=== PATIENT | male | born 1995 | race Caucasian/White ===

== ENCOUNTER 2021-09-03 22:44 | Emergency (ER) | payer SELFPAY ==
[~2021-09-03] VITALS: Ht 175.3 cm; Wt 59.0 kg
[~2021-09-03 22:44] MED LIST: BUSPAR; CODACE30 PO
[2021-09-03 23:51] LABS: BASOPHILS ABSOLUTE AUTO 0.04 K/mm3 (0.00-0.23); BASOPHILS PERCENT AUTO 1 % (0-2); EOSINOPHILS ABSOLUTE AUTO 0.03 K/mm3 (0.00-0.68); EOSINOPHILS PERCENT AUTO 1 % (0-6); Hematocrit 45.5 % (37.0-53.0); Hemoglobin 16.6 g/dL (13.5-17.5); IMMATURE GRAN ABSOLUTE AUTO 0.01 K/mm3 (0.00-0.10); IMMATURE GRAN PERCENT AUTO 0 % (0-1); LYMPHOCYTES ABSOLUTE AUTO 1.91 K/mm3 (0.84-5.20); LYMPHOCYTES PERCENT AUTO 36 % (21-46); MONOCYTES ABSOLUTE AUTO 0.57 K/mm3 (0.16-1.47); MONOCYTES PERCENT AUTO 11 % (4-13); Mean Corpuscular HGB 36.7 pg (26.0-34.0); Mean Corpuscular HGB Conc 36.5 g/dL (31.5-36.5); Mean Corpuscular Volume 101 fL (80-100); Mean Platelet Volume 8.4 fL (9.1-12.4); NEUTROPHILS ABSOLUTE AUTO 2.73 K/mm3 (1.96-9.15); NEUTROPHILS PERCENT AUTO 52 % (41-73); Platelet Count 321 K/mm3 (150-400); RDW Coefficient Variation 13.2 % (11.7-14.2); RDW Standard Deviation 49.3 fL (35.1-46.3); Red Blood Cell Count 4.52 M/mm3 (4.30-5.90); White Blood Cell Count 5.29 K/mm3 (4.00-11.30)
[2021-09-04 00:15] LABS: Alanine Aminotransfer (ALT/SGP 184 U/L (12-78); Albumin, Blood 3.9 g/dL (3.4-5.0); Albumin/Globulin Ratio 1.1 (0.8-1.8); Alk Phos 143 U/L (50-136); Anion Gap 11 mmol/L (6-16); Aspartate Aminotrans (AST/SGOT 75 U/L (12-37); Bilirubin, Total 1.9 mg/dL (0.1-1.0); Blood Urea Nitrogen 14 mg/dL (8-24); Bun/Creatinine Ratio 12.5 (12.0-20.0); CO2, Blood 31 mmol/L (21-32); Calcium, Blood 9.5 mg/dL (8.5-10.1); Chloride, Blood 94 mmol/L (98-108); Creatinine, Blood 1.12 mg/dL (0.60-1.20); Ethanol (Alcohol), Blood, Med 210 mg/dL; Globulin, Blood 3.7 g/dL (2.2-4.0); Glomerular Filtration Rate >60 (60-); Glucose, Blood 118 mg/dL (70-99); Potassium, Blood 3.5 mmol/L (3.5-5.5); Sodium, Blood 136 mmol/L (136-145); Total Protein, Blood 7.6 g/dL (6.4-8.2)
[2021-09-04 01:32] LABS: Source, Urine Voided
[2021-09-04 01:38] LABS: Appearance, Urine Clear (Clear); Bilirubin, Urine Neg (Neg); Blood, Urine Neg (Neg); Color, Urine Yellow (P-Yellow); Glucose Qualitative, Urine Neg (Neg); Ketones, Urine Neg (Neg); Leukocyte Esterase, Urine Neg (Neg); Nitrite, Urine Neg (Neg); Protein, Urine 2+ (Neg); Urobilinogen, Urine 2+ (Normal)
[2021-09-04 01:52] LABS: Bacteria Rare /hpf; Red Blood Cells, Urine 0-2 /hpf (0-2); Squamous Epithelial Cells Rare /hpf (Few); White Blood Cells, Urine 0-2 /hpf (0-5)
[2021-09-04 01:55] LABS: U Amphetamine Screen Not Detected; U Barbituate Screen Not Detected; U Benzodiazapine Screen Not Detected; U Buprenorphine Screen Not Detected; U Cannabinoids Screen Not Detected; U Cocaine Screen Not Detected; U Methadone Screen Not Detected; U Methamphetamine Screen Not Detected; U Opiates Screen Not Detected; U Oxycodone Screen Not Detected; U Phencyclidine Screen Not Detected; U Propoxyphene Screen Not Detected
[2021-09-04 02:12] LABS: Influenza A, PCR NEGATIVE (NEGATIVE); Influenza B, PCR NEGATIVE (NEGATIVE); Resp Syncytial Virus, PCR NEGATIVE (NEGATIVE); SARS-Cov-2 (COVID-19) PCR, MMC NEGATIVE (NEGATIVE)
[2021-09-04] MEDS ORDERED: DICY20 PO (02:20)
[2021-09-04] MEDS ORDERED: Ondansetron Odt8 MG MM (02:20)
[2021-09-04] MEDS ORDERED: Protonix40 MG PO (02:20)
== END 2021-09-04 02:33 | disposition home or self-care (01) ==
LOC: ER 22:44
PROVIDERS: Emergency Medicine
DX: R19.7 Diarrhea, unspecified (principal); R11.10 Vomiting, unspecified; F10.10 Alcohol abuse, uncomplicated; R10.13 Epigastric pain
CPT/HCPCS: 0241U; 36415; 76705; 80053; 81001; 83605; 83690; 85025; 96372; 96374; 99284-25; G0480; J0500; J2405; J7030

== ENCOUNTER 2021-09-28 17:18 | Inpatient (IN) | payer OTHER ==
[~2021-09-28] VITALS: Ht 172.7 cm; Wt 75.2 kg
[~2021-09-28 17:18] MED LIST changes: +DICY20 PO; +Ondansetron Odt8 MG MM; +Protonix40 MG PO
[2021-09-28 17:50] LABS: BASOPHILS ABSOLUTE AUTO 0.03 K/mm3 (0.00-0.23); BASOPHILS PERCENT AUTO 0 % (0-2); EOSINOPHILS PERCENT AUTO 0 % (0-6); Hematocrit 48.5 % (37.0-53.0); Hemoglobin 17.2 g/dL (13.5-17.5); IMMATURE GRAN ABSOLUTE AUTO 0.11 K/mm3 (0.00-0.10); IMMATURE GRAN PERCENT AUTO 1 % (0-1); LYMPHOCYTES ABSOLUTE AUTO 0.87 K/mm3 (0.84-5.20); LYMPHOCYTES PERCENT AUTO 7 % (21-46); MONOCYTES ABSOLUTE AUTO 0.48 K/mm3 (0.16-1.47); MONOCYTES PERCENT AUTO 4 % (4-13); Mean Corpuscular HGB 33.8 pg (26.0-34.0); Mean Corpuscular HGB Conc 35.5 g/dL (31.5-36.5); Mean Corpuscular Volume 95 fL (80-100); NEUTROPHILS ABSOLUTE AUTO 11.08 K/mm3 (1.96-9.15); NEUTROPHILS PERCENT AUTO 88 % (41-73); NRBC ABSOLUTE 0.02 K/mm3 (0.00-0.02); NRBC Auto 0.2 /100 WBC (0.0-0.2); Platelet Count 68 K/mm3 (150-400); RDW Standard Deviation 63.1 fL (35.1-46.3); Red Blood Cell Count 5.09 M/mm3 (4.30-5.90); White Blood Cell Count 12.57 K/mm3 (4.00-11.30)
[2021-09-28 18:25] LABS: Albumin, Blood 2.2 g/dL (3.4-5.0); Albumin/Globulin Ratio 0.8 (0.8-1.8); Bilirubin, Total 11.2 mg/dL (0.1-1.0); Bun/Creatinine Ratio 7.4 (12.0-20.0); Calcium, Blood 6.9 mg/dL (8.5-10.1); Creatinine, Blood 1.88 mg/dL (0.60-1.20); Globulin, Blood 2.9 g/dL (2.2-4.0); Potassium, Blood 4.2 mmol/L (3.5-5.5); Total Protein, Blood 5.1 g/dL (6.4-8.2)
[2021-09-28 19:19] LABS: Source, Urine Clean Catch
[2021-09-28 19:24] LABS: Blood, Urine 4+ (Neg); Glucose Qualitative, Urine 1+ (Neg); Ketones, Urine 1+ (Neg); Leukocyte Esterase, Urine 1+ (Neg); Nitrite, Urine Pos (Neg); Protein, Urine 2+ (Neg); Specific Gravity, Urine 1.025 (1.003-1.022); Urobilinogen, Urine 2+ (Normal)
[2021-09-28 19:33] LABS: Appearance, Urine Hazy (Clear); Color, Urine Amber (P-Yellow)
[2021-09-28 19:34] LABS: Bilirubin, Urine 3+ (Neg)
[2021-09-28 19:35] LABS: Amorphous Light (0-Heavy); Bacteria Many /hpf; Granular Casts 0-2 /lpf (0); Squamous Epithelial Cells Few /hpf (Few)
--- NOTE | 2021-09-28 23:20 | NUR ---
ARRIVAL TO ICU PT ARRIVED TO ICU 16 AT 2220 VIA ED BED AND WAS ABLE TO TRANSFER HIMSELF OVER TO ICU BED WITH MINIMAL ASSISTANCE. PT IS ALERT/ORIENTED X4 AND IS ABLE TO MAKE HIS NEEDS KNOWN. AFEBRILE. SPO2 97% ON RA; TACHYPNIC; PT STATES HE BREATHS SHALLOW DUE TO THE PRESSURE FROM HIS ABD. HR 120-130'S. BP STABLE. ABD IS MODERATLY DISTENDED, FIRM, AND TENDER TO PALPATE; PAIN IN ABD 9/10, TRAMADOL AVIALBALE AND GIVEN; HYPOACTIVE BT; NAUSEA AND DRY HEAVING JUST AFTER ARRIVAL TO ICU; PRN ZOFRAN AVAILABLE AND GIVEN; PT TOLERATING SINGLE ICE CHIPS AT A TIME WELL. BANANA BAG INFUSING AT 200ML/HR. CIWA SCORE 10. SEE ADMISSION ASSESSMENT FOR FULL ASSESSMENT.
[2021-09-29 04:05] LABS: BASOPHILS ABSOLUTE AUTO 0.03 K/mm3 (0.00-0.23); BASOPHILS PERCENT AUTO 0 % (0-2); Hematocrit 44.6 % (37.0-53.0); Hemoglobin 16.7 g/dL (13.5-17.5); LYMPHOCYTES ABSOLUTE AUTO 0.77 K/mm3 (0.84-5.20); LYMPHOCYTES PERCENT AUTO 9 % (21-46); MONOCYTES ABSOLUTE AUTO 0.45 K/mm3 (0.16-1.47); MONOCYTES PERCENT AUTO 5 % (4-13); Mean Corpuscular HGB 34.3 pg (26.0-34.0); Mean Corpuscular HGB Conc 37.4 g/dL (31.5-36.5); Mean Corpuscular Volume 92 fL (80-100); NRBC ABSOLUTE 0.02 K/mm3 (0.00-0.02); NRBC Auto 0.2 /100 WBC (0.0-0.2); Platelet Count 51 K/mm3 (150-400); RDW Coefficient Variation 17.4 % (11.7-14.2); RDW Standard Deviation 58.4 fL (35.1-46.3); Red Blood Cell Count 4.87 M/mm3 (4.30-5.90); White Blood Cell Count 8.78 K/mm3 (4.00-11.30)
[2021-09-29 04:10] LABS: EOSINOPHILS PERCENT AUTO 0 % (0-6); IMMATURE GRAN ABSOLUTE AUTO 0.06 K/mm3 (0.00-0.10); IMMATURE GRAN PERCENT AUTO 1 % (0-1); NEUTROPHILS ABSOLUTE AUTO 7.47 K/mm3 (1.96-9.15); NEUTROPHILS PERCENT AUTO 85 % (41-73)
[2021-09-29 04:43] LABS: Albumin, Blood 1.6 g/dL (3.4-5.0); Albumin/Globulin Ratio 0.8 (0.8-1.8); Bilirubin, Total 9.9 mg/dL (0.1-1.0); Bun/Creatinine Ratio 6.9 (12.0-20.0); Calcium, Blood 5.5 mg/dL (8.5-10.1); Creatinine, Blood 2.16 mg/dL (0.60-1.20); Globulin, Blood 2.1 g/dL (2.2-4.0); Potassium, Blood 3.6 mmol/L (3.5-5.5); Total Protein, Blood 3.7 g/dL (6.4-8.2)
--- NOTE | 2021-09-29 04:54 | NUR ---
UPDATE CALLED DR SMITH REGARDING CRITICAL LAB OF 5.5 CALCIUM. NEW ORDERS PROVIDED FOR CALCIUM GLUCONATE 1AMP IV X1.
--- NOTE | 2021-09-29 06:25 | NUR ---
END OF SHIFT SUMMARY NO ACUTE EVENTS OVERNIGHT. PT CONT TO BE ALERT/ORIENTED X4 AND ABLE TO MAKE HIS NEEDS KNOWN. CIWA SCORES 10-13; ATIVAN GIVEN X2 FOR ANXIETY. SPO2 >96% ON RA; TACHYPNIA NOTED. HR 120-130'S; WILL INCREASE TO 140'S DURING EXERTION. BP STABLE. ABD CONT TO BE FIRM, TENDER, AND MODERATLY DISTENDED; NO BM THIS SHIFT; ZOFRAN GIVEN ONCE AND HELPFUL; PT CONT TO TOLERATE ICE CHIPS WELL; TORADOL GIVEN X2 FOR ABD PAIN SCORE OF 7-9. PT USING URINAL INDEPENDENTLY; 120ML MIRYAM URINE OUT. NS INFUSING AT 150ML/HR. CALCIUM GLUCONATE JUST FINSISHED INFUSING. WILL REPORT TO AM RN WHEN AVAILABLE.
--- NOTE | 2021-09-29 07:45 | NUR ---
PATIENT FELL THIS AM AROUND 0730. NURSE IN ROOM 10 MINUTES EARLIER. NURSE AT NURSE STATION AND NOTICED ECG LEADS WERE NOT READING WELL. NURSE WENT INTO ROOM AND SAW PATIENT TRYING TO GET UP OFF THE FLOOR FROM BEING ON HIS STOMACH. NURSE ASKED PATIENT WHAT HAPPENED AND PATIENT STATED HE FELL WHEN HE WAS TRYING TO USE THE URINAL. 3 SIDE RAILS UP AND PATIENT WENT AROUND SIDE RAILS TO GET OUT OF BED. PATIENT INFORMED WHEN NURSE IN 10 MINUTES EARLIER TO CALL NURSE IF HE NEEDED ANYTHING AND THAT HE IS NOT TO GET OUT OF BED WITHOUT NURSE ASSISTANCE. PATIENT ALERT AND ORIENTED X 4 AT THIS TIME. ASKED PATIENT IF HE HAD HURT ANYTHING OR WAS IN PAIN ANYWERE AND PATIENT STATED "NO". PATIENT SPONTANEOUSLY GOT UP TO CHAIR AND THEN TO BED WHILE NURSE TRYING TO ASK QUESTIONS. NURSE QUICKLY TRIED TO HELP PATIENT SO HE DID NOT FALL AGAIN. CHARGE NURSE CALLED TO ROOM. NURSE LABELING STRATEGIST INFORMED. HEMATOMA NOTED TO TOP MIDDLE OF FOREHEAD AND ELBOWS REDDENED. PATIENT ADMITTED THAT HE LANDED ON HIS ELBOWS AND "HIT HIS HEAD ON THE CEMENT". DR. JARRETT CALLED AND INFORMED OF EVENT. CT HEAD TO BE PERFORMED. CAMERA TURNED ON IN ROOM. BED ALARM ON. CALL LIGHT IN REACH. BED LOW. WILL CONTINUE TO MONITOR.
--- NOTE | 2021-09-29 08:00 | NUR ---
INITIAL ASSESSMENT PATIENT ALERT AND ORIENTED X 4 THIS AM. PATIENT IS SLIGHTLY ANXIOUS. CIWA SCORE OF 3 THIS AM. PATIENT CRAWLED OUT OF BED PAST SIDE RAIL TO TRY AND USE URINAL ON OWN AND FALL ON FACE THIS AM. SCLERA REDDENED AND JAUNDICED. PATIENT AFEBRILE. PATIENT HAS NO COMPLAINTS OF PAIN, EVEN AFTER FALLING. PATIENT SATTING 90% AND GREATER ON RA. LUNGS CLEAR. PATIENT DOES BECOME SLIGHTLY SOB WITH EXERTION. PATIENT IN SR, HR IN THE 120S. SBP IN THE 1-TEENS. PULSES IN BILAT FEET FAINT. ASCITES TO STOMACH. ABDOMEN MODERATELY DISTENDED, FIRM, TENDER, WITH HYPOACTIVE BOWEL SOUNDS NOTED. PATIENT NPO AT THIS TIME. DATE OF LAST BM ON 09/24. NO VOID YET THIS SHIFT. HEMATOMA TO TOP MIDDLE FOREHEAD. ABRASION TO MIDDLE OF EYEBROWS. ELBOWS REDDENED. SCATTERED BRUISES NOTED. SKIN PALE AND SLIGHTLY JAUNDICED. SKIN IS DRY AND PEELING/ SCALING ON FACE AND FEET. BED LOW, CALL LIGHT IN REACH, BED ALARM ON. WILL CONTINUE TO MONITOR PATIENT FREQUENTLY THROUGHOUT SHIFT.
--- NOTE | 2021-09-29 11:30 | NUR ---
PATIENT CONFUSED AND ONLY ORIENTED TO SELF. WHEN PATIENT ASKED WHERE HE WAS HE STATED "HAUNTED PRIUS". PATIENT AGITATED AND PULLING AT IMPORTANT LINES AND CORDS. PATIENT CONTINUES TO TRY AND CRAWL OUT OF BED. CIWA SCORE OF 17. SPEECH GARBLED. PRECEDEX AT 0.2 MCG/ KG/ HOUR. PATIENT NOT FOLLOWING COMMANDS BUT IS LOCALIZING MOVEMENTS. HR 1-TEENS TO 120S. SBP IN THE LOW 100S. PATIENT OLIGURIC. URINE DARK TEA IN COLOR. MADRIGAL IN PLACE. BED LOW, CALL LIGHT IN REACH, BED ALARM ON.
--- NOTE | 2021-09-29 12:00 | NUR ---
DR. JARRETT INFORMED THAT PATIENT HAS BEEN ESCALATING AND CONTINUES TO TRY AND GET OUT OF BED. INFORMED THAT PATIENT HAS NOT VOIDED THIS AM AND BLADDER SCAN SHOWS OVER 700 MLS OF FLUID. ORDERS RECEIVED.
[2021-09-29 12:02] LABS: Source, Urine Foley catheter
[2021-09-29 12:06] LABS: Blood, Urine 4+ (Neg); Glucose Qualitative, Urine Neg (Neg); Ketones, Urine 1+ (Neg); Leukocyte Esterase, Urine 1+ (Neg); Nitrite, Urine Pos (Neg); Protein, Urine 2+ (Neg); Specific Gravity, Urine 1.015 (1.003-1.022); Urobilinogen, Urine 2+ (Normal)
[2021-09-29 12:16] LABS: Appearance, Urine Hazy (Clear); Bilirubin, Urine 3+ (Neg); Color, Urine Amber (P-Yellow)
[2021-09-29 12:17] LABS: Amorphous Light (0-Heavy); Bacteria Mod /hpf; Squamous Epithelial Cells Few /hpf (Few)
--- NOTE | 2021-09-29 15:04 | NUR ---
SHIFT SUMMARY PATIENT HAS REMAINED ALERT AND ORIENTED X 4, AFEBRILE. PATIENT HAS HAD NO COMPLAINTS OF PAIN OR DISCOMFORT. PATIENT HAS AMBULATED WELL SBA TO TOILET. PATIENT HAS REMAINED DENYING S.I.. RESP REMAINS WNL. PATIENT HAS REMAINED SR, HR 60S TO 70S. SBP LOW 100S TO 130S. PATIENT NAUSEOUS THIS AM. PATIENT RECEIVED PRN REGLAN AND NAUSEA HAS BEEN BETTER SINCE. PATIENT REPORTS REGLAN WORKED BETTER FOR HER THAN THE ZOFRAN. NO BM THIS SHIFT. PATIENT INCREASED FROM NPO TO REGULAR DIET AND HAS BEEN TOLERATING WELL THUS FAR. WNL. PATIENT AT END OF MENSES. NO CHANGES TO SKIN NOTED. PATIENT HAS REPOSITIONED SELF IN BED THROUGHOUT SHIFT. NAC INFUSING AT 65 MLS/ HOUR. LABS TO BE DRAWN AT 0005 TO SEE IF DRIP WILL NEED TO BE CONTINUED OR NOT. LACTIC AND ACETAMINOPHEN LABS IMPROVED THIS SHIFT. PATIENT RECEIVED COMPLETE BED BATH THIS SHIFT. PATIENT TO BE TRANSFERRED TO PEDIATRIC UNIT, ROOM 224 SHORTLY.
--- NOTE | 2021-09-29 16:00 | NUR ---
PATIENT AFEBRILE. PATIENT GOES FROM PERIODS OF SLEEPING TO PERIODS OF BEING VERY AGITATED, PULLING AT EQUIPMENT AND TRYING TO GET OUT OF BED. CIWA SCORE OF 13. PRECEDEX AT 0.4 MCG/ KG/ HOUR. HR IN THE 1-TEENS. SBP IN THE 80S. WILL CONTINUE TO MONITOR.
--- NOTE | 2021-09-29 16:45 | NUR ---
DR. JARRETT CALLED AND INFORMED THAT PATIENT SBP 70S TO 80S AND HR 1-TEENS TO 130S. INFORMED THAT PATIENT HAS ONLY HAD ABOUT 80 MLS OF URINE OUTPUT FROM MADRIGAL THIS SHIFT. ORDERS RECEIVED.
--- NOTE | 2021-09-29 18:18 | NUR ---
CALLED DR. JARRETT AND INFORMED THAT PATIENT'S SBP 60S TO 70S, HR IN 1-TEENS AND THAT PATIENT HAS HAD NO MORE URINE OUTPUT SINCE NURSE LAST INFORMED OF LOW OUTPUT. INFORMED THAT MADRIGAL PATENT AFTER CHECKING WITH FLUSH. ORDER FOR 500 CC NS BOLUS RECEIVED.
--- NOTE | 2021-09-29 19:00 | NUR ---
SHIFT SUMMARY PATIENT ALERT AND ORIENTED X 4 AT BEGINNING OF SHIFT, HOWEVER SHORT TIME LATER PATIENT BECAME CONFUSED, GARBLED SPEECH, CIWA UP TO 17. PATIENT FELL THIS AM WHILE ALERT AND ORIENTED. HEAD CT PERFORMED AND IS NEGATIVE. PATIENT HAS EITHER REMAINED SLEEPING, OR AWAKE AND PULLING AT RESTRAINT, EQUIPMENT AND TRYING TO GET OUT OF BED. PATIENT HAS REMAINED ON RA. PATIENT SLIGHTLY SOB WITH EXERTION. PATIENT HAS REMAINED ST, HR UP TO 130S. SBP HAS RANGED FROM 70S TO 140S. ABDOMEN REMAINS DISTENDED. PATIENT HAD TWO XSMALL BROWN, MUCOUSY BMS THIS SHIFT. ATTENDS IN PLACE. MADRIGAL PLACED THIS SHIFT BLADDER SCANNER SHOWED OVER 700 MLS OF FLUID. MADRIGAL HAS ONLY DRAINED 92 MLS OF DARK TEA COLORED URINE THIS SHIFT. DR. JARRETT AWARE OF OLIGURIA AND PATIETN IS ON 2ND 500 CC BOLUS OF NS. MAINTENANCE FLUID ALSO INCREASED FROM 150 TO 200 MLS/ HOUR. PATIENT OBTAINED HEMATOMA TO TOP MIDDLE FOREHEAD, REDDENED ELBOWS AND ABRASION TO MIDDLE OF EYEBROWS FROM FALL THIS AM. PRECEDEX CURRENTLY INFUSING AT 0.3 MCG/ KG/ HOUR. TEST TECHNICIAN CONSULT PLACED THIS SHIFT. MESSAGE LEFT WITH SURGICAL ASST TO CALL SISTER. Mitchell SAMANO SUBMITTED THIS SHIFT. PATIENT RECEIVED COMPLETE BED BATH THIS SHIFT. REPORT HAS BEEN GIVEN TO ASSUMING MARKET SUPERINTENDENT NURSE.
--- NOTE | 2021-09-29 20:00 | NUR ---
ASSUMED CARE AT 1900 PT LAYING IN BED SLEEPING AT SHIFT CHANGE. PT IS REACTIVE TO VERBAL STIMULI AND WILL OCCATIONLLY ANSWER ORIENTATION QUESTIONS STATING HIS AND LOCATION THE HOSPITAL; DID NOT KNOW DATE/TIME AND UNABLE TO GET A CLEAR ANSWER ABOUT SITUATION; CIWA SCORE 15, ATIVAN GIVEN X2; PT WILL TRY TO MAKE NEEDS KNOWN BUT SPEECH IS GARBLED; PRECEDEX INFUSING AT 0.1MCG/KG/HR; SEE FLOW SHEET FOR TITATION. AFEBRILE. SPO2 >95% ON RA; TACHYPNIC WITH SHALLOW BREATHS. HR 90-110. SBP 70-90'S; MAP 55-70; DR PIÑA NOTIFIED OF BP FOR 1L BOLUS OVER 2HRS. ABD FIRM, TENDER, MODERATLY DISTENDED. MADRIGAL IN PLACE WITH NO URINE OUTPUT YET. BILATERAL ELBOWS CONT TO BE RED, ABRASION BETWEEN EYES OPEN TO AIR AND DRY, HEMATOMA ON FOREHEAD NOTED WITH NO CHANGE. PT REPOSITIONS SELF IN BED FREQUENTLY AND OCCATIONALLY PULLS AT LINES. SEE SHIFT ASSESSMENT FOR FULL ASSESSMENT.
[2021-09-29 21:07] LABS: U Amphetamine Screen Not Detected; U Barbituate Screen Not Detected; U Benzodiazapine Screen DETECTED; U Buprenorphine Screen Not Detected; U Cannabinoids Screen Not Detected; U Cocaine Screen Not Detected; U Methadone Screen Not Detected; U Methamphetamine Screen Not Detected; U Opiates Screen Not Detected; U Oxycodone Screen Not Detected; U Phencyclidine Screen Not Detected; U Propoxyphene Screen Not Detected
[2021-09-30 03:30] LABS: Hematocrit 29.2 % (37.0-53.0); Hemoglobin 10.2 g/dL (13.5-17.5); Mean Corpuscular HGB 34.6 pg (26.0-34.0); Mean Corpuscular HGB Conc 34.9 g/dL (31.5-36.5); NRBC ABSOLUTE 0.06 K/mm3 (0.00-0.02); NRBC Auto 0.8 /100 WBC (0.0-0.2); RDW Coefficient Variation 18.3 % (11.7-14.2); RDW Standard Deviation 66.1 fL (35.1-46.3); Red Blood Cell Count 2.95 M/mm3 (4.30-5.90); White Blood Cell Count 7.82 K/mm3 (4.00-11.30)
[2021-09-30 03:35] LABS: Mean Corpuscular Volume 99 fL (80-100)
[2021-09-30 03:36] LABS: Platelet Count 34 K/mm3 (150-400)
[2021-09-30 03:47] LABS: Alanine Aminotransfer (ALT/SGP 197 U/L (12-78); Albumin, Blood 1.5 g/dL (3.4-5.0); Alk Phos 322 U/L (50-136); Anion Gap 17 mmol/L (6-16); Aspartate Aminotrans (AST/SGOT 874 U/L (12-37); Bilirubin, Total 10.3 mg/dL (0.1-1.0); Blood Urea Nitrogen 24 mg/dL (8-24); Bun/Creatinine Ratio 5.7 (12.0-20.0); CO2, Blood 18 mmol/L (21-32); Chloride, Blood 95 mmol/L (98-108); Creatinine, Blood 4.22 mg/dL (0.60-1.20); Globulin, Blood 1.5 g/dL (2.2-4.0); Glomerular Filtration Rate 17 (60-); Glucose, Blood 69 mg/dL (70-99); Magnesium, Blood 1.9 mg/dL (1.6-2.4); Potassium, Blood 4.6 mmol/L (3.5-5.5); Sodium, Blood 130 mmol/L (136-145)
[2021-09-30 04:01] LABS: Calcium, Blood <5.0 mg/dL (8.5-10.1)
--- NOTE | 2021-09-30 07:45 | NUR ---
PATIENT'S SISTER CALLED AND UPDATED ON PATIENT CONDITION.
--- NOTE | 2021-09-30 07:46 | NUR ---
[address] PIÑA NOTIFIED OF BP NOT IMPROVING SINCE PREVIOUS CONVERSATION, ALSO INFORMED OF NOT HAVING ANY URINE OUTPUT YET IN SHIFT EVEN AFTER FLUSHING CATHETER. NEW ORDERS 1L BOLUS OF NS FOLLOWED BY 200ML/HR OF LR, TO START LEVOPHED, AND GIVE ALBUMIN 25G BID FOR 4 DOSES AND TO START NOW. TWO MORE PERIFERAL IV'S STARTED.
--- NOTE | 2021-09-30 07:51 | NUR ---
[address] SMITH ABOUT CONT BP ISSUES. MAPS 50-66 WITH LEVOPHED INFUSING AT 10MCG/MIN. DR SMITH PROVIDED ORDERS FOR AN ADDITIONAL 1L BOLUS OF NS. CENTRAL LINE PLACED AND CONFIRMED WITH CHEST X-RAY. 4MG ATIVAN GIVEN DURING CENTRAL LINE PLACING DUE TO INCREASED ANXIOUSNESS AND RESTLESSNESS FROM PT. NEW ORDERS GIVEN FOR ADDITIONAL MORNING LABS AND TO START VASOPRESSIN IF NEEDED. PT IS NOT RESTLESS ANYMORE.
--- NOTE | 2021-09-30 07:55 | NUR ---
[address] SMITH NOTIFIED OF CRITICAL LAB PLT 34 AND CALCIUM <5, ALSO INFORMED OF BMP 536, GLUCOSE 69, AND CREATININE 4.22. NEW ORDERS PROVIDED FOR 1AMP CALCIUM GLUCONATE IV NOW, 1AMP D50 NOW, AND TO TURN OFF ALL FLUIDS.
--- NOTE | 2021-09-30 08:00 | NUR ---
0500 UPDATE PT CONT TO HAVE BP ISSUES. LEVOPHED MAXED AT 30MCG/MIN, VASOPRESSIN 0.04UNITS/HR. ALSO PT CONT TO BE LESS RESPONSIVE AND DOES NOT HAVE A COUGH OR GAG, RR INCREASED TO 50'S AND ABD IS MORE RIDGED. DR SOTO CALLED AND CAME TO BEDSIDE TO ASSESS. 0.2MG ROMAZICON ORDERED AND GIVEN, PT BEGAN TO WAKE MORE AND BP IMPROVED WITH MAPS 65-75. NEW ORDERS ALSO FOR BICARB PUSHES FOLLOWED BY A BICARB GTT.
--- NOTE | 2021-09-30 08:00 | NUR ---
SHIFT ASSESSMENT PATIENT INTUBATED AND UNRESPONSIVE THIS AM. PATIENT OCCASIONALLY AND SPONTANEOUSLY WIGGLES FINGERS SLIGHTLY BUT PERFORMED NO OTHER BODY MOVEMENTS. PATIENT AFEBRILE. PATIENT ON VENT SETTINGS OF AC 16, TV 500, PEEP 5 AND 60% FIO2. LUNGS CLEAR. PATIENT IN SR, HR IN THE 60S. SBP 80S TO 1-TEENS. FEET DUSKY, MOTTLED, COLD AND HAVE DOPPLER PULSES. ABDOMEN MODERATELY DISTENDED AND FIRM. HYPOACTIVE BOWEL SOUNDS NOTED. LAST DOCUMENTED BM YESTERDAY. MADRIGAL DRAINING MINIMAL AMOUNTS OF DARK TEA, CLOUDY URINE. BRUISED HEMATOMA NOTED TO TOP MIDDLE FOREHEAD. REDDENED ELBOWS NOTED. ABRASION TO MIDDLE OF EYEBROWS. SCATTERED BRUISES NOTED. SKIN PALE, JAUNDICED, DRY AND SCALING/ PEELING. SODIUM BICARB INFUSING AT 75 MLS/ HOUR, LEVOPHED AT 30 MCG/ MINUTE, VASOPRESSIN AT 0.04 UNITS/ MINUTE, EPINEPRHINE 8 MCG/ MINUTE. NO SIGNS OF PAIN NOTED AT THIS TIME. BED LOW. WILL CONTINUE TO MONITOR PATIENT FREQUENTLY THROUGHOUT SHIFT.
--- NOTE | 2021-09-30 08:05 | NUR ---
0600 UPDATE/ END OF SHIFT SUMMARY DR SMITH RETURNED TO ASSESS PT AND PT HR STARTING TO BECOME IRREGULAR, RR RETURNED TO 50'S AND RETURNED TO BEING LESS RESPONSIVE. RT CALLED AND DR SMITH INTUBATED. 15MG ETOMIDATE GIVEN AT 0549, 80MG ROCURONIUM GIVEN AT 0549. 0551 8.0 ETT PLACED AND 25CM AT TEETH. VENT SETTINGS AC/VC 16/450/5/100%. NEW ORDERS FOR ADDITIONAL 500ML BOLUS AND A CT OF THE ABD/PELVIS W/O CONTRAST. PT BP STARTED TO DECLINE AGAIN, EPI STRATED AT 4MCG/MIN; LEVOPHED CONT AT 30MCG/MIN; VASPORESSIN INFUSING AT 0.04UNITS/HR. BICARB INFUSING AT 75ML/HR. PT HAS NOT BEEN REACTIVE SINCE INTUBATION, PRECEDEX INFUSING AT 0.7MCG/KG/HR, NO OTHER SEDATION. ABD IS MORE FIRM AND RIDGED THAN PREVIOUSLY. MADRIGAL ONLY HAD 23ML OF DARK MIRYAM CLOUDY OUTPUT. FEET MOTTLED. CENTRAL LINE DRESSING CHANGED ONCE AFTER ORIGINAL ONE BEING PLACED, YARITZA BANDAGE PLACED, SITE CONT TO PRATEEK. DR SMITH PROVIDED MORE ORDER 0645 TO INCREASE ALBUMIN, AND CHANGE BICARB RATE. REPORT GIVEN TO SMOOTH VALDEZ.
--- NOTE | 2021-09-30 08:15 | NUR ---
DR. QUINTANILLA INFORMED THAT PATIENT'S INTRA-ABDOMINAL PRESSURE IS 30. NUMBER DOUBLE CHECKED WITH WEAVER DOBBY LOOM.
--- NOTE | 2021-09-30 11:22 | NUR ---
PATIENT LEFT FOR OR.
[2021-09-30 11:35] LABS: Prothrombin Time Results 72.1 Sec (9.7-11.5)
[2021-09-30 11:39] LABS: International Normalized Ratio 7.86
--- NOTE | 2021-09-30 12:19 | NUR ---
PATIENT BACK FROM OR. LEVOPHED AT 24 MCG/ HOUR AND 90 MLS/ HOUR WHEN LEFT UNIT. WHEN PATIENT CAME BACK LEVOPHED AT 24 MLS/ HOUR.
--- NOTE | 2021-09-30 12:33 | NUR ---
09/30/21 1233 Elodia Hebert PATIENT ARRIVED TO OR WITH MADRIGAL CATHETER INPLACE DRAINING DARK URINE. PATIENT ALSO HAD A CENTRAL LINE IN PLACE IN RIGHT NECK. NO PREOP ANTIBIOTICS ORDERED PER PATIENT IS ON SCHEDULED ANTIBIOTICS.
[2021-09-30 13:02] LABS: Hematocrit 20.7 % (37.0-53.0); Hemoglobin 6.7 g/dL (13.5-17.5); Mean Corpuscular HGB 34.5 pg (26.0-34.0); Mean Corpuscular HGB Conc 32.4 g/dL (31.5-36.5); NRBC ABSOLUTE 0.15 K/mm3 (0.00-0.02); NRBC Auto 1.7 /100 WBC (0.0-0.2); Platelet Count 82 K/mm3 (150-400); RDW Coefficient Variation 18.5 % (11.7-14.2); RDW Standard Deviation 71.6 fL (35.1-46.3); Red Blood Cell Count 1.94 M/mm3 (4.30-5.90); White Blood Cell Count 9.08 K/mm3 (4.00-11.30)
[2021-09-30 13:15] LABS: International Normalized Ratio 2.25
[2021-09-30 13:21] LABS: Mean Corpuscular Volume 107 fL (80-100)
[2021-09-30 13:41] LABS: PCO2 Arterial 40.9 mmHg (35-45); PO2 Arterial 73.1 mmHg (80-100)
[2021-09-30 13:42] LABS: pH Blood Arterial 7.15 (7.35-7.45)
[2021-09-30 13:53] LABS: BAND PERCENT MAN 5 % (0-8); BASOPHILS PERCENT MAN 0 % (0-2); EOSINOPHILS ABSOLUTE MAN 0.09 K/mm3 (0.00-0.68); EOSINOPHILS PERCENT MAN 1 % (0-6)
[2021-09-30 13:55] LABS: LYMPHOCYTES ABSOLUTE MAN 1.99 K/mm3 (0.84-5.20); LYMPHOCYTES PERCENT MAN 22 % (21-46); MONOCYTES ABSOLUTE MAN 0.63 K/mm3 (0.16-1.47); MONOCYTES PERCENT MAN 7 % (4-13); NEUTROPHILS ABSOLUTE MAN 6.35 K/mm3 (1.96-9.15); SEG NEUTROPHILS PERCENT MAN 65 % (41-73); TOTAL CELLS COUNTED 100
[2021-09-30 14:20] LABS: Alanine Aminotransfer (ALT/SGP 314 U/L (12-78); Albumin, Blood 2.3 g/dL (3.4-5.0); Albumin/Globulin Ratio 1.4 (0.8-1.8); Alk Phos 277 U/L (50-136); Anion Gap 24 mmol/L (6-16); Aspartate Aminotrans (AST/SGOT 2091 U/L (12-37); Bilirubin, Total 9.8 mg/dL (0.1-1.0); Blood Urea Nitrogen 26 mg/dL (8-24); Bun/Creatinine Ratio 5.9 (12.0-20.0); CO2, Blood 15 mmol/L (21-32); Chloride, Blood 91 mmol/L (98-108); Creatinine, Blood 4.37 mg/dL (0.60-1.20); Globulin, Blood 1.7 g/dL (2.2-4.0); Glomerular Filtration Rate 16 (60-); Glucose, Blood 98 mg/dL (70-99); Potassium, Blood 4.5 mmol/L (3.5-5.5); Sodium, Blood 130 mmol/L (136-145)
[2021-09-30 14:21] LABS: Calcium, Blood <5.0 mg/dL (8.5-10.1)
[2021-09-30 15:05] LABS: Prothrombin Time Results 22.4 Sec (9.7-11.5)
--- NOTE | 2021-09-30 15:27 | NUR ---
Upon being contacted by RN Cane Flume Watcher Gerardo, I visit pt. Pt is minimally responsive. Pt's sister Mishel and friend Jose are bedside. I conduct a life review, discuss pt's core values, explore his personality and traits and reflect with family their most cherished memories with the pt. Pt has no hoahaoism preference but Mishel affirms that a prayer for the pt would be appropriate today. We also discuss his suicidal ideation and the events and traumas that may have sent a normally optimistic person down the road to self destruction. Mishle discusses pt's new DNR status and how that status lines up with his stubborn path to not feel pain and to quit on living. I provide therapeutic listening, emotional support, gentle vocational rehabilitation counselor and prayer. Family respond well and show signs of being comforted.
--- NOTE | 2021-09-30 16:10 | NUR ---
DR. BRAR CALLED AND INFORMED THAT BLOOD IS BUILDING UP UNDER DRESSING ON STOMACH AND THAT WOUND VAC KEEPS ALARMING THAT THERE IS A BLOCK. NURSE TRIED SWITCHING OUT CANISTER EARLIER BUT HAS NOT CORRECTED ALARM.
--- NOTE | 2021-09-30 16:32 | NUR ---
PATIENT HAS STARTED BLEEDING FROM EYES. DR. QUINTANILLA UPDATED AND TO ROOM TO SPEAK WITH PATIENT'S SISTER. PATIENT'S SISTER HAS DECIDED TO GO COMFORT CARE.
--- NOTE | 2021-09-30 17:00 | NUR ---
SHIFT SUMMARY PATIENT VERY UNSTABLE THROUGHOUT SHIFT. PATIENT BLOOD PRESSURE CONTINUED TO BE LOW. PATIENT WAS PLACED ON LEVOPHED AT 30 MCG/ MINUTE, VASOPRESSIN AT 0.04 UNITS/ MINUTE, EPINEPHRINE AT 20 MCG/ MINUTE, AND KARINA-SYNEPRHINE AT 100 MCG/ MINUTE. BLOOD PRESSURE CONTINUED TO BE AN ISSUE. ABDOMINAL PRESSURE HIGH AT [address] BRAR WAS CONSULTED AND TOOK PATIENT TO OR TO OPEN UP STOMACH AND RELIEVE PRESSURE. PATIENT CAME BACK WITH WOUND VAC. AFTER PATIENT CAME BACK FROM OR HIS BLEEDING INCREASED. PATIENT GIVEN 1 UNIT PLATELETS AND 2 UNITS FFP IN OR. PATIENT GIVEN 1 UNIT RBCS AND 2 UNITS PLASMA WHEN CAME BACK TO ICU. PATIENT UP AND DOWN ON VENT FIO2 FROM 35 TO 100%. HR RANGED FROM 80S TO 1-TEENS. SBP RANGED FROM 40S TO 160S. BP COULD BE LABILE. ABDOMEN CONTINUED TO SWELL AND BECOME MORE DISTENDED AFTER CAME BACK FROM OR ON WOUND VAC. NO BM THIS SHIFT. PATIENT CONTINUED TO HAVE VERY MINIMAL URINE OUTPUT; URINE REMAINED DARK TEA AND CLOUDY IN COLOR. PATIENT RECEIVED AMP OF SODIUM BICARB, ALBUMIN X 2, CALCIUM CHLORIDE, CALCIUM GLUCONATE, CEFEPIME, VANCO, NS BOLUS, SODIUM BICARB DRIP THIS SHIFT. ECHO PERFORMED THIS SHIFT. PATIENT TAKEN FOR ABDOMINAL CT THIS AM. THIS AFTERNOON, WHEN PATIENT STARTED BLEEDING FROM EYES, SISTER DECIDED TO CHANGE PATIENT TO COMFORT CARE. PATIENT EXTUBATED AT 1640 AND PASSED AT 1650. PATIENT'S SISTER AND HER SON AND ALSO IN ROOM AT PATIENT'S PASSING. ALL BELONGINGS SENT HOME WITH SISTER DARIUS.
== END 2021-09-30 16:50 | DRG 420 ==
LOC: ER 17:18 → ICUW 21:45
PROVIDERS: Internal Medicine; Internal Medicine Critical Care Medicine; Internal Medicine Nephrology; Physician Assistant; Surgery; ADMIT Internal Medicine
PROC: 0BH17EZ Insertion of Endotracheal Airway into Trachea, Via Natural or Artificial Opening (ICD-10-PCS; 2021-09-30)
PROC: 5A1935Z Respiratory Ventilation, Less than 24 Consecutive Hours (ICD-10-PCS; 2021-09-30)
PROC: 3E033XZ Introduction of Vasopressor into Peripheral Vein, Percutaneous Approach (ICD-10-PCS; 2021-09-30)
PROC: 0W9G0ZZ Drainage of Peritoneal Cavity, Open Approach (ICD-10-PCS; principal; 2021-09-30 10:30)
DX: K85.20 Alcohol induced acute pancreatitis without necrosis or infection (principal); A41.9 Sepsis, unspecified organism; R65.21 Severe sepsis with septic shock; J96.00 Acute respiratory failure, unspecified whether with hypoxia or hypercapnia; N17.9 Acute kidney failure, unspecified; F10.239 Alcohol dependence with withdrawal, unspecified; Z66 Do not resuscitate; Z51.5 Encounter for palliative care; E87.1 Hypo-osmolality and hyponatremia; M79.A3 Nontraumatic compartment syndrome of abdomen; D68.8 Other specified coagulation defects; E87.2 Acidosis; N39.0 Urinary tract infection, site not specified; R18.8 Other ascites; Z78.1 Physical restraint status; E86.0 Dehydration; E83.51 Hypocalcemia; K70.10 Alcoholic hepatitis without ascites; F41.9 Anxiety disorder, unspecified; E87.8 Other disorders of electrolyte and fluid balance, not elsewhere classified; F90.9 Attention-deficit hyperactivity disorder, unspecified type; Z79.899 Other long term (current) drug therapy; Z90.89 Acquired absence of other organs; Z72.0 Tobacco use; Z28.21 Immunization not carried out because of patient refusal
CPT/HCPCS: 31500; 36415; 36430; 36556; 36600; 70450; 71045; 74176; 74177; 76705; 80053; 81001; 82330; 82803; 82947; 83690; 83735; 83880; 85025; 85027; 85610; 86850; 86900; 86901; 86923; 87077; 87086; 87186; 93005; 93010; 94002; 94003; 96374-59; 96375; 99285-25; A9270; C1751; C8929; C9113; G0480; J0171; J0610; J0692; J0696; J1650; J1885; J2060; J2270; J2370; J2405; J2550; J3010; J3370; J3411; J3475; J7030; J7040; J7042; J7050; J7060; J7070; J7120; J7799; P9016; P9035; P9046; P9059; Q9957; Q9967